=== PATIENT | male | born 1945 | race Caucasian/White ===

== ENCOUNTER → 2016-10-24 10:54 | Outpatient (CLI) | payer MEDICARE ==
[2013-08-14 06:54] VITALS: BMI 27.4
[~2016-10-24 10:54] MED LIST: BAYER CHEWABLE81 MG PO; EFFEXOR XR150 MG PO; FISH OIL 1,0001 CA1 PO; MULTI-DAY VITAM1 TAB PO; NASACORT AQ16.5 GM NS; NORCO 5/325 TAB1 TA1 PO; OSTEO BI-FLEX1 EAC1 PO; PLAVIX75 MG PO; PRINIVIL20 MG PO; SINGULAIR10 MG PO; VITAMIN D3400 UNI1 PO
== END | disposition home or self-care (01) ==
LOC: D.RT 10:54
DX: J45.909 Unspecified asthma, uncomplicated (principal)